=== PATIENT | female | born 1935 | race Caucasian/White ===

== ENCOUNTER 2021-07-27 17:16 | Inpatient (IN) | payer MEDICARE ==
[~2021-07-27] VITALS: Ht 160 cm; Wt 52.2 kg
[2021-07-27] MEDS ORDERED: Z GUARD REMEDY 2 OZ OINT TP PRN (18:00)
[2021-07-27] MEDS ORDERED: MAG HYDROX/AL HYDROX/SIMETH 30 ML UDC PO PRN (18:00)
[2021-07-27] MEDS ORDERED: ONDANSETRON HCL/PF 4 MG/2 ML VIAL IVP PRN (18:00)
[2021-07-27] MEDS ORDERED: ACETAMINOPHEN 325 MG TABLET PO PRN (18:00)
[2021-07-27] MEDS ORDERED: MAGNESIUM HYDROXIDE 30 ML UDC PO PRN (18:00)
--- NOTE | 2021-07-27 18:38 | NUR ---
ADMINISTRATOR PESTICIDE NOTE RECEIVED PATIENT VIA GURNEY FROM EMS FROM [place]. PATIENT IS BREATHING EVENLY AND NONLABORED ON ROOM AIR. NO SIGNS OF DISTRESS NOTED. PATIENT DENIES PAIN OR DISCOMFORT AT THIS TIME. PATIENTS VITALS BP 142/66, HR 68, RR 18, TEMP 98, O2 SAT 97%. PATIENT HAS IV ACCESS TO RAC #20 GAUGE, PATENT AND INTACT. PATIENT WAS ORIENTED TO THE ROOM AND HOW TO USE THE CALL LIGHT. SAFETY MEASURES IN PLACE, BED LOW LOCKED AND CALL LIGHT WITHIN REACH. WILL ENDORSE TO ONCOMING SHIFT
--- NOTE | 2021-07-27 19:10 | NUR ---
LAB TESTER OPENING NOTE PATIENT RECEIVED AWAKE IN BED. PATIENT PRESENTS IN A PLEASANT MOOD. A/OX4. NO S/S OF DISTRESS, BREATHING SYMMETRICAL. IV RAC #20G. SAFETY MEASURES IN PLACE: BED DOWN AT LOWEST POSITION, RAILS UP X2, CALL BARNETT WITHIN REACH. WILL CONTINUE TO MONITOR PATIENT THROUGHOUT SHIFT.
[2021-07-27 20:00] VITALS: BP 101/57
[2021-07-27 20:24] LABS: BASOPHILS % (AUTO) 0.5 % (0.0-2.0); EOSINOPHILS % (AUTO) 0.3 % (0.0-6.0); HEMATOCRIT 35 % (33-45); LYMPHOCYTES # (AUTO) 0.8 K/uL (0.8-4.8); LYMPHOCYTES % (AUTO) 13.1 % (20.0-44.0); MEAN CORPUSCULAR HGB CONC 35 g/dl (31.0-36.0); MEAN CORPUSCULAR VOLUME 95 fL (82-100); MONOCYTES # (AUTO) 0.9 K/uL (0.1-1.30); MONOCYTES % (AUTO) 14.9 % (2.0-12.0); NEUTROPHILS # (AUTO) 4.5 K/uL (1.8-8.9); NEUTROPHILS % (AUTO) 71.2 % (43.0-81.0); PLATELET COUNT (AUTO) 184 K/uL (150-450); RED BLOOD CELL COUNT(AUTO) 3.62 MIL/uL (4.0-5.2); WHITE BLOOD COUNT (AUTO) 6.3 K/uL (4.3-11.0)
[2021-07-27 20:28] VITALS: BP 168/74
[2021-07-27 20:40] LABS: CALCIUM, SERUM 8.1 mg/dL (8.5-10.1); CREATININE 0.8 mg/dL (0.6-1.3); MAGNESIUM 1.9 mg/dL (1.8-2.4); PHOSPHORUS 3.2 mg/dL (2.5-4.9); POTASSIUM 3.8 mmol/L (3.5-5.1)
[2021-07-27] MEDS: IV NS 0.9% 1,000 ML IV PRN (21:56)
[2021-07-28] VITALS: BP 156/69
[2021-07-28] MEDS: ENOXAPARIN SODIUM 40 MG/0.4 ML DISP.SYRIN SQ SCH ×2 (00:23→23:15)
[2021-07-28 04:00] VITALS: BP 143/64
[2021-07-28 06:14] LABS: BASOPHILS % (AUTO) 0.6 % (0.0-2.0); EOSINOPHILS % (AUTO) 1.1 % (0.0-6.0); HEMATOCRIT 34 % (33-45); HEMOGLOBIN 11.9 g/dL (11.5-14.8); LYMPHOCYTES # (AUTO) 0.7 K/uL (0.8-4.8); LYMPHOCYTES % (AUTO) 14.9 % (20.0-44.0); MEAN CORPUSCULAR HGB CONC 35 g/dl (31.0-36.0); MEAN CORPUSCULAR VOLUME 95 fL (82-100); MONOCYTES # (AUTO) 0.7 K/uL (0.1-1.30); MONOCYTES % (AUTO) 14.6 % (2.0-12.0); NEUTROPHILS # (AUTO) 3.4 K/uL (1.8-8.9); NEUTROPHILS % (AUTO) 68.8 % (43.0-81.0); PLATELET COUNT (AUTO) 175 K/uL (150-450); RED BLOOD CELL COUNT(AUTO) 3.57 MIL/uL (4.0-5.2); WHITE BLOOD COUNT (AUTO) 4.9 K/uL (4.3-11.0)
--- NOTE | 2021-07-28 06:35 | NUR ---
TELE CLOSING NOTE PATIENT IS ASLEEP IN BED. A/OX4. NO S/S OF DISTRESS, BREATHING UNLABORED. OUTSIDE PLANT CABLE ENGINEER REPORTS SR 68 AT PRESENT. SAFETY MEASURES IN PLACE: BED AT LOWEST POSITION, RAILS UP X2, CALL BARNETT WITHIN REACH. WILL ENDORSE TO THE NEXT SHIFT FOR SMOOTH.
[2021-07-28 06:53] LABS: CALCIUM, SERUM 8.3 mg/dL (8.5-10.1); CREATININE 0.7 mg/dL (0.6-1.3); MAGNESIUM 1.9 mg/dL (1.8-2.4); PHOSPHORUS 3.5 mg/dL (2.5-4.9); POTASSIUM 3.8 mmol/L (3.5-5.1)
--- NOTE | 2021-07-28 07:30 | NUR ---
BIOCHEMIST OPENING NOTE PATIENT RECEIVED AWAKE IN BED. PATIENT A/OX4. NO S/S OF DISTRESS,SOB NOTED. IV RAC #20G. INTACT AND PATENT. ON TELE MONITORING READING OF SR=73 .NO BLEEDING NOTED. SAFETY MEASURES IN PLACE:BED DOWN AT LOWEST POSITION, RAILS UP X2, CALL BARNETT WITHIN REACH. WILL CONTINUE TO MONITOR PATIENT .
[2021-07-28 08:00] VITALS: BP 158/70
[2021-07-28] MEDS ORDERED: LEVOTHYROXINE SODIUM 75 MCG TABLET PO SCH (11:00)
[2021-07-28 12:00] VITALS: BP 174/73
[2021-07-28] MEDS: IV NS 0.9% 1,000 ML IV PRN (14:06)
[2021-07-28] MEDS ORDERED: CLONIDINE HCL 0.1 MG TABLET PO PRN (14:30)
[2021-07-28 16:28] VITALS: BP 163/67
[2021-07-28] MEDS: AMLODIPINE BESYLATE 5 MG TABLET PO SCH (17:32)
--- NOTE | 2021-07-28 18:37 | NUR ---
PHYSIOGNOMIST CLOSING NOTE PATIENT AWAKE IN BED. PATIENT A/OX4. NO S/S OF DISTRESS,SOB NOTED. IV RAC #20G. INTACT AND PATENT. ON TELE MONITORING ALL DUE ,MEDS GIVEN.. SAFETY MEASURES IN PLACE:BED DOWN AT LOWEST POSITION, RAILS UP X2, CALL BARNETT WITHIN REACH. WILL ENDORSE INCOMING SHIFT FOR SMOOTH.
--- NOTE | 2021-07-28 19:30 | NUR ---
DREDGE MATE OPENING NOTE RECEIVED PT AWAKE IN BED. A/OX4. PT STABLE ON ROOM AIR. NO SOB OR S/S OF RESPIRATORY DISTRESS. IV ACCESS RAC #20G, INTACT AND PATENT. EXTERNAL ASSISTANT PROGRAM MANAGER READING OF SR 68 BPM. SAFETY PRECAUTIONS IN PLACE. BED IN LOWEST LOCKED POSITION, SIDE RAILS UP X2, CALL LIGHT AND TABLE WITHIN REACH. WILL CONTINUE TO MONITOR.
[2021-07-28 20:00] VITALS: BP 161/77
--- NOTE | 2021-07-28 21:18 | NUR ---
RN NOTE BLOOD PRESSURE 161/77 AND HR 71. ADMINISTERED CLONIDINE HYDROCHLORIDE 0.1 MG PO PRN FOR SBP >160 ORDERED. WILL CONTINUE TO MONITOR.
[2021-07-29] VITALS: BP 129/69
[2021-07-29] MEDS: IV NS 0.9% 1,000 ML IV PRN (03:04)
[2021-07-29 04:00] VITALS: BP 133/72
[2021-07-29] MEDS ORDERED: LEVOTHYROXINE SODIUM 25 MCG TABLET PO SCH (07:30)
--- NOTE | 2021-07-29 07:30 | NUR ---
MICROBIAL SPECIALIST OPENING NOTE RECEIVED PATIENT AWAKE ON BED AND A/OX4. ON ROOM AIR BREATHING EVENLY AND UNLABORED. NO SOB OR S/S OF RESPIRATORY DISTRESS. IV ACCESS RAC #20G, INTACT AND PATENT. WITH EXTERNAL COREMAKER FLOOR CURRENTLY READING AT SR 77 BPM. WITH NO COMPLAINTS OF PAIN OR DISCOMFORT AT THIS TIME. WITH IV ACCESS AT LEFT FA G20 WITH IVF NS AT 100ML/HR INFUSING WELL. SAFETY PRECAUTIONS IN PLACE. BED IN LOWEST LOCKED POSITION, SIDE RAILS UP X2, CALL LIGHT AND TABLE WITHIN REACH. WILL CONTINUE TO MONITOR.
[2021-07-29 08:00] VITALS: BP 146/65
[2021-07-29 08:29] LABS: CALCIUM, SERUM 8.2 mg/dL (8.5-10.1); CREATININE 0.7 mg/dL (0.6-1.3); MAGNESIUM 1.8 mg/dL (1.8-2.4); PHOSPHORUS 3.1 mg/dL (2.5-4.9); POTASSIUM 3.6 mmol/L (3.5-5.1)
[2021-07-29] MEDS: AMLODIPINE BESYLATE 5 MG TABLET PO SCH (08:39)
[2021-07-29 08:46] LABS: THYROID STIMULATING HORMONE 2.081 uIU/mL (0.358-3.74); URIC ACID 1.8 mg/dL (2.6-7.2)
[2021-07-29] MEDS ORDERED: LEVOTHYROXINE SODIUM 25 MCG TABLET ONE (09:30)
[2021-07-29 12:00] VITALS: BP 115/55
--- NOTE | 2021-07-29 16:20 | NUR ---
MS DIRECTOR PROSPECT NOTES PATIENT WAS SEEN BY DR. JONES AND WAS ORDERED FOR DISCHARGE TO HOME. DISCHARGE INSTRUCTION AND EDUCATION PROVIDED TO PATIENT AND EXPLAINED MEDICATIONS AND PRESCRIPTIONS. PATIENT VERBALIZED UNDERSTANDING. DISCHARGE FORM AND BELONGINGS LIST FORM SIGNED BY PATIENT. ALL BELONGINGS ACCOUNTED FOR. NAME WRIST BAND AND IV LINE REMOVED. NO SKIN ISSUES. ACCOMPANIED PATIENT TO THE LOBBY VIA WHEELCHAIR. PATIENT WAS PICKED UP BY SON AND LEFT IN STABLE CONDITION VIA PRIVATE CAR. MD AND CHARGE NURSE ARE AWARE OF THE DISCHARGE.
[2021-07-30] MEDS ORDERED: LEVOTHYROXINE SODIUM 25 MCG TABLET PO SCH (07:30)
== END 2021-07-29 17:15 | disposition home or self-care (01) | DRG 73 ==
LOC: TELE 17:16
PROVIDERS: ADMIT Internal Medicine; ATTEND Internal Medicine
DX: G90.8 Other disorders of autonomic nervous system (principal); N17.0 Acute kidney failure with tubular necrosis; E87.1 Hypo-osmolality and hyponatremia; E03.9 Hypothyroidism, unspecified; S20.219A Contusion of unspecified front wall of thorax, initial encounter; X58.XXXA Exposure to other specified factors, initial encounter; Y92.9 Unspecified place or not applicable; E86.1 Hypovolemia; I10 Essential (primary) hypertension; R07.81 Pleurodynia
CPT/HCPCS: 36415; 80048-TC; 80061-TC; 82533; 83735-TC; 84100-TC; 84443-TC; 84550-TC; 85025-TC; 87081-TC; 93307-TC; G0378; J1650; J7030